=== PATIENT | male | born 1960 | race African-American/Black ===

== ENCOUNTER → 2016-12-27 | Outpatient (CLI) | payer BC ==
--- NOTE | 2016-12-27 16:58 | RADIOLOGY REPORT (SQ) ---
EXAM DESCRIPTION: T SPINE AP/LAT COMPLETED DATE/TIME: 12/27/2016 4:42 pm REASON FOR STUDY: LOW BACK PAIN M54.5 LOW BACK PAIN COMPARISON: None. NUMBER OF VIEWS: Two views. TECHNIQUE: AP and lateral radiographic images acquired of the thoracic spine. LIMITATIONS: None. FINDINGS: MINERALIZATION: Normal. ALIGNMENT: Normal. No scoliosis. VERTEBRAE: No fracture or bone lesion. Maintained height, normal segmentation. DISCS: Extensive bridging osteophytes at multiple disc levels. No dominant disc space narrowing. HARDWARE: None in the spine. MEDIASTINUM AND SOFT TISSUES: Normal heart size and aortic contour. No soft tissue abnormality. VISUALIZED LUNG SANDHU: Clear. OTHER: No other significant finding. IMPRESSION: Diffuse idiopathic skeletal hyper ostosis. TECHNICAL DOCUMENTATION: JOB ID: [id number] [employer]- All Rights Reserved
--- NOTE | 2016-12-27 17:12 | RADIOLOGY REPORT (SQ) ---
EXAM DESCRIPTION: LUMBAR SPINE COMPLETE COMPLETED DATE/TIME: 12/27/2016 4:42 pm REASON FOR STUDY: LOW BACK PAIN M54.5 LOW BACK PAIN COMPARISON: None. NUMBER OF VIEWS: Five views including obliques. TECHNIQUE: AP, lateral, oblique, and sacral radiographic images acquired of the lumbar spine. LIMITATIONS: None. FINDINGS: MINERALIZATION: Normal. SEGMENTATION: Normal. No transitional anatomy. ALIGNMENT: Mild grade 1 anterolisthesis of L4 over L5 VERTEBRAE: Maintained height. No fracture or worrisome bone lesion. DISCS: Disc space loss of height at L4-5 POSTERIOR ELEMENTS: No gross pars defects. There is advanced facet arthropathy bilaterally at L4-5 a nd L5-S1. HARDWARE: None in the spine. PARASPINAL SOFT TISSUES: Normal. PELVIS: Intact as visualized. No fractures or worrisome bone lesions. SI joints intact. OTHER: No other significant finding. IMPRESSION: Lower lumbar degenerative disc changes and facet arthropathy at L5-S1. TECHNICAL DOCUMENTATION: JOB ID: [id number] [email or web address]- All Rights Reserved
== END ==
LOC: OD 16:15
PROVIDERS: ATTEND Student in an Organized Health Care Education/Training Program
DX: M54.5 Low back pain (principal); M51.16 Intervertebral disc disorders with radiculopathy, lumbar region; M48.14 Ankylosing hyperostosis [Forestier], thoracic region
CPT/HCPCS: 72070; 72110

== ENCOUNTER → 2019-04-29 | Outpatient (CLI) | payer OTHER, BC ==
[2019-04-29 10:16] LABS: ABSOLUTE EOSINOPHILS # (AUTO) 0.1 10^3/uL (0.0-0.6); ABSOLUTE LYMPHOCYTES (AUTO) 1.9 10^3/uL (0.5-4.7); ABSOLUTE MONOCYTES (AUTO) 0.6 10^3/uL (0.1-1.4); ABSOLUTE NEUT (AUTO) 4.3 10^3/uL (1.7-8.2); BASOPHILS % (AUTO) 0.3 % (0-2); EOSINOPHILS % (AUTO) 1.4 % (0-6); HEMATOCRIT 39.3 % (37.9-51.0); HEMOGLOBIN 13.5 g/dL (13.5-17.0); LYMPHOCYTES % (AUTO) 27.1 % (13-45); MEAN CORPUSCULAR HEMOGLOBIN 31.7 pg (27.0-33.4); MEAN CORPUSCULAR HGB CONC 34.4 g/dL (32.0-36.0); MEAN CORPUSCULAR VOLUME 92 fl (80-97); MONOCYTES % (AUTO) 9.2 % (3-13); PLATELET COUNT 230 10^3/uL (150-450); RED BLOOD COUNT 4.27 10^6/uL (4.35-5.55); RED CELL DISTRIBUTION WIDTH 14.3 % (11.5-14.0); TOTAL CELLS COUNTED % (AUTO) 100 %; WHITE BLOOD COUNT 6.9 10^3/uL (4.0-10.5)
--- NOTE | 2019-04-29 10:17 | RADIOLOGY REPORT (SQ) ---
EXAM DESCRIPTION: CHEST PA/LATERAL COMPLETED DATE/TIME: 04/29/2019 10:06 am REASON FOR STUDY: PRE-OP COMPARISON: None. EXAM PARAMETERS: NUMBER OF VIEWS: two views TECHNIQUE: Digital Frontal and Lateral radiographic views of the chest acquired. RADIATION DOSE: NA LIMITATIONS: none FINDINGS: LUNGS AND PLEURA: No opacities, masses or pneumothorax. No pleural effusion. MEDIASTINUM AND HILAR STRUCTURES: No masses or contour abnormalities. HEART AND VASCULAR STRUCTURES: Enlarged cardiac silhouette. Unfolded thoracic aorta. BONES: No acute findings. HARDWARE: None in the chest. OTHER: No other significant finding. IMPRESSION: Enlarged cardiac silhouette without other evidence of acute cardiopulmonary process. TECHNICAL DOCUMENTATION: JOB ID: [id number] [employer]- All Rights Reserved Reading location - IP/workstation name: [email or web address]
[2019-04-29 10:21] LABS: APPEARANCE,URINE SLIGHTLY-CLOUDY; BILIRUBIN,URINE NEGATIVE (NEGATIVE); COLOR,URINE YELLOW; GLUCOSE, URINE NEGATIVE (NEGATIVE); KETONES,URINE NEGATIVE (NEGATIVE); LEUKOCYTE ESTERASE,URINE SMALL (NEGATIVE); NITRITE,URINE NEGATIVE (NEGATIVE); PROTEIN,URINE NEGATIVE (NEGATIVE); URINE SPECIFIC GRAVITY 1.025; UROBILINOGEN,URINE NEGATIVE mg/dL (<2.0)
[2019-04-29 10:47] LABS: ANION GAP 8 (5-19); BLOOD UREA NITROGEN 22 mg/dL (7-20); CALCIUM 9.3 mg/dL (8.4-10.2); CARBON DIOXIDE 27 mmol/L (22-30); CHLORIDE 104 mmol/L (98-107); GLUCOSE 100 mg/dL (75-110); POTASSIUM 4.3 mmol/L (3.6-5.0)
--- NOTE | 2019-04-29 11:28 | EKG REPORT ---
SEVERITY:- OTHERWISE NORMAL ECG - SINUS BRADYCARDIA : Confirmed by: Cony Awad 29-Apr-2019 11:27:06
== END ==
LOC: OD 09:35
PROVIDERS: ATTEND Orthopaedic Surgery
DX: Z01.810 Encounter for preprocedural cardiovascular examination (principal); Z01.811 Encounter for preprocedural respiratory examination; Z01.812 Encounter for preprocedural laboratory examination
CPT/HCPCS: 36415; 71046; 80048; 81001; 85025; 93005; 93010

== ENCOUNTER 2019-05-25 05:28 | Inpatient (IN) | payer OTHER, BC ==
[~2019-05-25 05:28] MED LIST: BUPIVACAINE INJ/PF LIPOSOME/PF 266 MG/20 ML SDV INJ PRN; CEFAZOLIN INJ 1 GM VIAL IV PRN; IBUPROFEN 800 MG in NORMAL SALINE 250 ML IV PRN; LACTATED RINGERS 1000 ML IV PRN; LIDOCAINE 0.5% INJ-PF (5 MG/ML) 50 ML SDV SUBCUT PRN; OXYCODONE HCL SR 10 MG TABLET PO PRN; PANTOPRAZOLE SODIUM 20 MG TABLET.DR PO PRN; VANCOMYCIN HCL 1,000 MG in DEXTROSE 5%-WATER 250 ML IV PRN
[2019-05-25] MEDS ORDERED: OXYCODONE HCL SR 10 MG TABLET PO ONE (05:33)
[2019-05-25] MEDS ORDERED: PANTOPRAZOLE SODIUM 20 MG TABLET.DR PO ONE (05:34)
[2019-05-25] MEDS ORDERED: DEXAMETHASONE SOD PHOSPHATE INJ 4 MG/1 ML VIAL ONE (06:19)
[2019-05-25] MEDS ORDERED: ONDANSETRON HCL INJ/PF 4 MG/2 ML SDV ONE (06:19)
[2019-05-25] MEDS ORDERED: FENTANYL CITRATE INJ/PF 100 MCG/2 ML AMPUL ONE ×2 (06:19→10:47)
[2019-05-25] MEDS ORDERED: FENTANYL CITRATE INJ/PF 250 MCG/5 ML AMPULE ONE (06:19)
[2019-05-25] MEDS ORDERED: MIDAZOLAM 2 MG/2 ML INJ ONE (06:19)
[2019-05-25] MEDS ORDERED: PROPOFOL INJ 200 MG/20 ML VIAL IV ONE (06:20)
[2019-05-25] MEDS ORDERED: LIDOCAINE 0.5% INJ-PF (5 MG/ML) 50 ML SDV ONE (06:27)
[2019-05-25] MEDS ORDERED: BUPIVACAINE HCL 0.5%-EPI 1:200000 INJ/PF 30 ML VIAL ONE (07:07)
[2019-05-25] MEDS ORDERED: MORPHINE SULFATE 10 MG/ML INJ IV PRN ×2 (08:11→12:00)
[2019-05-25] MEDS ORDERED: MEPERIDINE HCL/PF INJ 25 MG/1 ML DISP.SYRIN IV PRN (08:11)
[2019-05-25] MEDS ORDERED: ONDANSETRON HCL INJ/PF 4 MG/2 ML SDV IV PRN ×2 (08:11→09:32)
[2019-05-25] MEDS ORDERED: DIPHENHYDRAMINE HCL 50 MG/ML VIAL IV PRN ×2 (08:11→09:32)
[2019-05-25] MEDS ORDERED: FENTANYL CITRATE INJ/PF 100 MCG/2 ML AMPUL IV PRN ×3 (08:11)
[2019-05-25] MEDS ORDERED: PROMETHAZINE HCL INJ 25 MG/1 ML VIAL IV PRN ×2 (08:11)
[2019-05-25] MEDS ORDERED: SUCCINYLCHOLINE CHLORIDE INJ 200 MG/10 ML VIAL ONE (09:16)
[2019-05-25] MEDS ORDERED: ACETAMINOPHEN 325 MG TABLET PO PRN (09:32)
[2019-05-25] MEDS ORDERED: ZOLPIDEM TARTRATE 5 MG TABLET PO PRN (09:32)
[2019-05-25] MEDS ORDERED: MAG HYDROX/AL HYDROX/SIMETH SUSP 30 ML UDCUP PO PRN (09:32)
[2019-05-25] MEDS ORDERED: OXYCODONE HCL IR 5 MG TABLET PO PRN (09:32)
[2019-05-25] MEDS ORDERED: RINGERS SOLUTION,LACTATED 1,000 ML IV PRN (09:32)
[2019-05-25] MEDS ORDERED: ONDANSETRON 4 MG TAB.RAPDIS PO PRN (09:32)
--- NOTE | 2019-05-25 09:32 | Operative Report ---
Operative Report DATE OF SURGERY: 05/25/19 PREOPERATIVE DIAGNOSIS: Bilateral knee arthritis OPERATION: Bilateral knee arthroplasty SURGEON: WILBERT ESPINOZA ANESTHESIA: GA TISSUE REMOVED OR ALTERED: Bone to pathology ESTIMATED BLOOD LOSS: 100 PROCEDURE: Implants used: Femur: Chandler triathlon size 7 PS femur Tibia: 6 tibia Tibial liner: 11 mm PS insert Patella: 40 mm oval patella Procedure with the patient supine on the operating table both limb is prepped and draped in a sterile fashion. The left limb was elevated for exsanguination and the tourniquet inflated to 280 torr. A standard midline median parapatellar approach the knee is taken. Access is gained to the femoral canal through the intercondylar notch. Intramedullary alignment instrumentation used to resect 10 mm of distal femur in 5 of valgus. Sizing guide indicated a size 7 femur. Appropriate cutting jig is then used to fashion anterior posterior and chamfer cuts. The posterior stabilized box was cut. A trial reduction femurs performed and this is judged to be adequate. Attention was next turned to the tibia. Using an extra medullary alignment system two millimeters was resected off the medial tibial plateau because of the severe varus deformity. This is sized to a size 6 tibia. A trial reduction was now performed with a 7 femur and a 6 tibia using a Wing millimeters spacer. It is full extension and central patellofemoral tracking. The articular surface the patella was next resected using an oscillating saw. All trial implants were removed. Polymethylmethacrylate is mixed and used to cement the above implants in place. On adequate curing the cement excess cement was removed the tourniquet was deflated hemostasis obtained the wound is then closed in layers using interrupted Vicryl followed by tiara. Next an identical procedure was performed on the right lower extremity. A sterile compressive dressing was applied and the patient returned to recovery room in satisfactory condition.
[2019-05-25] MEDS ORDERED: TRANEXAMIC ACID INJ/PF 1,000 MG/10 ML SDV ONE ×2 (09:45→10:51)
[2019-05-25] MEDS ORDERED: ACETAMINOPHEN 1,000 MG/100 ML RTUPB IV ONE (10:47)
[2019-05-25] MEDS ORDERED: HYDROMORPHONE HCL INJ/PF 2 MG/ML AMPULE ONE (10:51)
[2019-05-25] MEDS ORDERED: TRANEXAMIC ACID INJ/PF 1,000 MG/10 ML SDV IV ONE (11:00)
--- NOTE | 2019-05-25 11:23 | RADIOLOGY REPORT (SQ) ---
EXAM DESCRIPTION: KNEE LEFT 2 VIEWS COMPLETED DATE/TIME: 05/25/2019 10:48 am REASON FOR STUDY: Post OP -Long Cassette in PACU M17.0 BILATERAL PRIMARY OSTEOARTHRITIS OF KNEE COMPARISON: None. NUMBER OF VIEWS: Two views. TECHNIQUE: AP and lateral radiographic images acquired of the left knee. LIMITATIONS: None. FINDINGS: Postoperative images show a total knee arthroplasty in good position. IMPRESSION: Left knee arthroplasty. Refer to operative note for further information. TECHNICAL DOCUMENTATION: JOB ID: [id number] [employer]- All Rights Reserved Reading location - IP/workstation name: [email or web address]
--- NOTE | 2019-05-25 11:24 | RADIOLOGY REPORT (SQ) ---
EXAM DESCRIPTION: KNEE RIGHT 2 VIEWS COMPLETED DATE/TIME: 05/25/2019 10:48 am REASON FOR STUDY: Post OP -Long Cassette in PACU M17.0 BILATERAL PRIMARY OSTEOARTHRITIS OF KNEE COMPARISON: None. NUMBER OF VIEWS: Two views. TECHNIQUE: AP and lateral radiographic images acquired of the right knee. LIMITATIONS: None. FINDINGS: Postoperative images show total knee arthroplasty in good position. IMPRESSION: Right knee arthroplasty. Refer to operative note for further information. TECHNICAL DOCUMENTATION: JOB ID: [id number] [employer]- All Rights Reserved Reading location - IP/workstation name: [email or web address]
[2019-05-25] MEDS: MORPHINE SULFATE 10 MG/ML INJ IV PRN ×3 (13:13→22:26)
[2019-05-25] MEDS: ATENOLOL 50 MG TABLET PO SCH (13:24)
[2019-05-25] MEDS: ASPIRIN 81 MG TABLET, ENT COATED PO SCH (13:25)
[2019-05-25] MEDS: PRENATAL VITAMIN W DHA CAPSULE PO SCH (13:25)
[2019-05-25] MEDS: OXYCODONE HCL SR 10 MG TABLET PO SCH ×2 (13:25→21:08)
[2019-05-25] MEDS: SENNOSIDES/DOCUSATE 8.6-50 MG 1 EACH TABLET PO SCH ×2 (13:25→17:13)
[2019-05-25] MEDS: ALLOPURINOL 300 MG TABLET PO SCH (16:12)
[2019-05-25] MEDS: IBUPROFEN 800 MG in NORMAL SALINE 250 ML IV SCH ×2 (16:12→21:07)
[2019-05-25] MEDS: PREGABALIN 75 MG CAPSULE PO SCH (21:08)
[2019-05-25] MEDS ORDERED: VANCOMYCIN HCL 1,000 MG in DEXTROSE 5%-WATER 250 ML IV ONE (21:32)
[2019-05-26] MEDS ORDERED: PANTOPRAZOLE SODIUM 40 MG TABLET.DR PO SCH (06:00)
[2019-05-26] MEDS: IBUPROFEN 800 MG in NORMAL SALINE 250 ML IV SCH (06:19)
[2019-05-26] MEDS: MORPHINE SULFATE 10 MG/ML INJ IV PRN (06:20)
[2019-05-26 06:28] LABS: HEMATOCRIT 29.1 % (37.9-51.0); HEMOGLOBIN 9.8 g/dL (13.5-17.0); MEAN CORPUSCULAR HEMOGLOBIN 31.5 pg (27.0-33.4); MEAN CORPUSCULAR HGB CONC 33.7 g/dL (32.0-36.0); MEAN CORPUSCULAR VOLUME 94 fl (80-97); PLATELET COUNT 207 10^3/uL (150-450); RED BLOOD COUNT 3.11 10^6/uL (4.35-5.55); RED CELL DISTRIBUTION WIDTH 14.4 % (11.5-14.0); WHITE BLOOD COUNT 12.2 10^3/uL (4.0-10.5)
[2019-05-26 06:44] LABS: ANION GAP 8 (5-19); BLOOD UREA NITROGEN 27 mg/dL (7-20); CALCIUM 8.2 mg/dL (8.4-10.2); CARBON DIOXIDE 24 mmol/L (22-30); CHLORIDE 103 mmol/L (98-107); GLUCOSE 110 mg/dL (75-110); POTASSIUM 4.3 mmol/L (3.6-5.0)
--- NOTE | 2019-05-26 07:17 | PDOC DISCHARGE SUMMARY ---
Impression - Admit/DC Date/PCP Admission Date/Primary Care Provider: 05/25/19 05:28 [facility] Discharge Date: 05/26/19 - Additional Information Resuscitation Status: Full Code Discharge Diet: Regular Discharge Activity: Balance Activity w/Rest, No tub bath Referrals: WILBERT ESPINOZA MD [ACTIVE STAFF] - 06/09/19 10:00 am Home Medications: Allopurinol [Zyloprim 300 mg Tablet] 300 mg PO DAILY 05/14/19 Atenolol 100 mg PO DAILY 05/14/19 Naproxen 500 mg PO Q12HP PRN 05/14/19 Cyanocobalamin (Vitamin B-12) [Vitamin B-12] 1,000 mcg PO DAILY 05/25/19 Multivitamin/Iron/Folic Acid [Centrum Adults Tablet] 1 each PO DAILY 05/25/19 History of Present Illiness History of Present Illness: JOSELITO SEO SR is a 59 year old male with b knee pain Hospital Course Hospital Course: admitted thru OR. Ambulsting with PT Physical Exam Vital Signs: Temp Pulse Resp BP Pulse Ox 36.8 C 63 15 113/72 98 05/25/19 23:50 05/25/19 23:50 05/25/19 23:50 05/25/19 23:50 05/25/19 23:50 Intake & Output 05/25/19 05/26/19 05/27/19 06:59 06:59 06:59 Intake Total 0 4310 Output Total 350 Balance 0 3960 Weight 113.6 kg General appearance: PRESENT: no acute distress Respiratory exam: PRESENT: unlabored Cardiovascular exam: PRESENT: RRR Pulses: PRESENT: +1 pedal pulses bilateral GI/Abdominal exam: PRESENT: soft Rectal exam: PRESENT: deferred Musculoskeletal exam: PRESENT: other - knee dressing dry Neurological exam: PRESENT: alert, awake, oriented to person, oriented to place, oriented to time, oriented to situation. ABSENT: motor sensory deficit Skin exam: PRESENT: dry, intact, warm. ABSENT: cyanosis, rash Results Laboratory Results: WBC 12.2 10^3/uL (4.0-10.5) H 05/26/19 05:55 RBC 3.11 10^6/uL (4.35-5.55) L 05/26/19 05:55 Hgb 9.8 g/dL (13.5-17.0) L 05/26/19 05:55 Hct 29.1 % (37.9-51.0) L 05/26/19 05:55 MCV 94 fl (80-97) 05/26/19 05:55 MCH 31.5 pg (27.0-33.4) 05/26/19 05:55 MCHC 33.7 g/dL (32.0-36.0) 05/26/19 05:55 RDW 14.4 % (11.5-14.0) H 05/26/19 05:55 Plt Count 207 10^3/uL (150-450) 05/26/19 05:55 Sodium 134.7 mmol/L (137-145) L 05/26/19 05:55 Potassium 4.3 mmol/L (3.6-5.0) 05/26/19 05:55 Chloride 103 mmol/L (98-107) 05/26/19 05:55 Carbon Dioxide 24 mmol/L (22-30) 05/26/19 05:55 Anion Gap 8 (5-19) 05/26/19 05:55 BUN 27 mg/dL (7-20) H 05/26/19 05:55 Creatinine 1.61 mg/dL (0.52-1.25) H 05/26/19 05:55 Est GFR ( Amer) 53 (>60) L 05/26/19 05:55 Est GFR (MDRD) Non-Af 44 (>60) L 05/26/19 05:55 Glucose 110 mg/dL (75-110) 05/26/19 05:55 Calcium 8.2 mg/dL (8.4-10.2) L 05/26/19 05:55 Blood Type A POSITIVE 05/25/19 06:50 Antibody Screen NEGATIVE 05/25/19 06:50 Impressions: Knee X-Ray 05/25/19 09:35 IMPRESSION: Right knee arthroplasty. Refer to operative note for further information. Knee X-Ray 05/25/19 09:35 IMPRESSION: Left knee arthroplasty. Refer to operative note for further information. Plan Plan of Treatment: d/c with home health and DME. F/u Dr espinoza 2 weeks Time Spent: Less than 30 Minutes Stroke Is this a Stroke Patient?: No Stroke Pt being discharged on Anti-thrombolytic therapy?: Yes Acute Heart Failure - Is this a Heart Failure Patient?: No
[2019-05-26 09:23] VITALS: BP 109/63
[2019-05-26] MEDS: ATENOLOL 50 MG TABLET PO SCH (09:33)
[2019-05-26] MEDS: PRENATAL VITAMIN W DHA CAPSULE PO SCH (09:33)
[2019-05-26] MEDS: ASPIRIN 81 MG TABLET, ENT COATED PO SCH (09:33)
[2019-05-26] MEDS: SENNOSIDES/DOCUSATE 8.6-50 MG 1 EACH TABLET PO SCH (09:33)
[2019-05-26] MEDS: PREGABALIN 75 MG CAPSULE PO SCH (09:33)
[2019-05-26] MEDS: ALLOPURINOL 300 MG TABLET PO SCH (09:34)
[2019-05-26] MEDS: OXYCODONE HCL SR 10 MG TABLET PO SCH (09:35)
== END 2019-05-26 11:40 | disposition home health service (06) | DRG 462 ==
LOC: INOR 05:28 → 4S 11:47
PROVIDERS: ADMIT Orthopaedic Surgery; ATTEND Orthopaedic Surgery
PROC: 0SRC0J9 Replacement of Right Knee Joint with Synthetic Substitute, Cemented, Open Approach (ICD-10-PCS; 2019-05-25)
PROC: 0SRD0J9 Replacement of Left Knee Joint with Synthetic Substitute, Cemented, Open Approach (ICD-10-PCS; principal; 2019-05-25 07:30)
DX: M17.0 Bilateral primary osteoarthritis of knee (principal); I10 Essential (primary) hypertension; M10.9 Gout, unspecified
CPT/HCPCS: 01402; 36415; 80048; 85027; 86850; 86900; 86901; 88305; 88311; 94799; C1713; C1776; J0131; J0330; J1100; J1170; J1200; J1741; J2250; J2270; J2405; J2704; J3010; J3370; J3490; J7050; J7060

== ENCOUNTER → 2019-06-03 | Outpatient (CLI) | payer OTHER, BC | LOC: OD 14:37 | PROVIDERS: ATTEND Orthopaedic Surgery | DX: R35.0 Frequency of micturition (principal) | CPT/HCPCS: 87086; 87088 ==

== ENCOUNTER → 2019-06-23 | Outpatient (CLI) | payer OTHER, BC ==
--- NOTE | 2019-06-23 14:55 | RADIOLOGY REPORT (SQ) ---
EXAM DESCRIPTION: CHEST 2 VIEWS COMPLETED DATE/TIME: 06/23/2019 2:36 pm REASON FOR STUDY: R05 COUGH COMPARISON: 04/29/2019 EXAM PARAMETERS: NUMBER OF VIEWS: two views TECHNIQUE: Digital Frontal and Lateral radiographic views of the chest acquired. RADIATION DOSE: NA LIMITATIONS: none FINDINGS: LUNGS AND PLEURA: No opacities, masses or pneumothorax. No pleural effusion. MEDIASTINUM AND HILAR STRUCTURES: No masses or contour abnormalities. HEART AND VASCULAR STRUCTURES: Stable mildly enlarged cardiac silhouette. BONES: No acute findings. HARDWARE: None in the chest. OTHER: No other significant finding. IMPRESSION: No focal consolidation or other evidence of acute cardiopulmonary process. TECHNICAL DOCUMENTATION: JOB ID: [id number] [email or web address]- All Rights Reserved Reading location - IP/workstation name: [email or web address]
== END ==
LOC: RAD 14:13
PROVIDERS: ATTEND Nurse Practitioner Family
DX: R05 Cough (principal)
CPT/HCPCS: 71046